=== PATIENT | female | born 1985 | race Caucasian/White ===

== ENCOUNTER 2020-02-27 10:38 | Emergency (ER) | payer OTHER, SELFPAY ==
[2020-02-27 11:52] VITALS: BP 138/85; PULSE 55; RESP 16; TEMP 37.1; O2SAT 100; BMI 30.9
--- NOTE | 2020-02-27 12:07 | CT_ITS ---
EXAMINATION: CT HEAD WITHOUT CONTRAST CLINICAL INFORMATION: Head trauma, rule out intracranial hemorrhage. COMPARISON: None TECHNIQUE: Contiguous axial imaging was performed from the skull base to vertex without intravenous administration of contrast. Coronal and sagittal reformatted images were obtained. This CT examination was performed using dose optimization techniques as appropriate, variously including the following: *Automated exposure control *Adjustment of mA and/or kV according to patient size (this includes techniques or standardized protocols for targeted exams where dose is matched to indication/reason for exam; i.e. extremities or head) *Use of iterative reconstruction technique DLP: 644 mGy-cm FINDINGS: There is no evidence of acute intracranial hemorrhage or territorial infarction. No abnormal mass effect or midline shift is seen. Wharton to white matter differentiation is well preserved. No extra-axial fluid collections are identified. The ventricles are normal in size. There is no abnormal attenuation within the brain parenchyma. The osseous structures and soft tissues are normal. The mastoid air cells are clear. There is complete opacification of the visualized superior aspect of the left maxillary sinus. The remainder the paranasal sinuses are clear. CT/CT head/brain wo con IMPRESSION: 1. No acute intracranial abnormality. 2. Complete opacification of the visualized superior aspect of the left maxillary sinus. The remainder of the visualized sinuses are clear.
--- NOTE | 2020-02-27 12:36 | ED.MEDCLEAR ---
HPI - Medical Clearance General Chief complaint: Medical Clearance Stated complaint: head injury Time Seen by Provider: 02/27/20 11:43 Source: patient Mode of arrival: ambulatory Limitations: no limitations History of Present Illness HPI Narrative: patient presents to the ED for head trauma. Patient states today at work she hit her frontal head on the door of a cabinet drawer at work. patient states this occurred around 07:30am and since then has had headache and dizziness. Patient states just before coming to the ED the headache and dizziness resolved. Patient came to ED to be evaluated. Patient denies any blood thinners, falling to the floor, neck pain, loss of consciousness, or history of any brain bleed. Related Information Previous Rx's Medication Instructions Recorded naproxen 500 mg PO BID PRN #20 tab 02/27/20 Allergies Allergy/AdvReac Type Severity Reaction Status Date / Time No Known Allergies Allergy Verified 02/27/20 11:55 Review of Systems Review of Systems: Yes all other systems are reviewed and are negative Constitutional: Constitutional: Reports as per HPI, Reports no additional constitutional complaints and Reports headache(s) (resolved) Eyes: Eyes: Reports as per HPI and Reports no additional eye complaints ENT: Reports system reviewed and no additional complaints, except as documented, Reports as per HPI, Reports dizziness (resolved) and Reports headache(s) (resolved) Cardiovascular: Cardiovascular: Reports as per HPI and Reports no additional cardiovascular complaints Respiratory: Respiratory: Reports as per HPI and Reports no additional respiratory complaints Gastrointestinal: Gastrointestinal: Reports as per HPI and Reports no additional gastrointestinal complaints Musculoskeletal: Musculoskeletal: Reports no additional musculoskeletal complaints and Reports as per HPI Neurologic: Reports system reviewed and no additional complaints, except as documented, Reports as per HPI, Reports dizziness (resolved) and Reports headache(s) (resolved) Psychiatric: Psychiatric: Reports no additional psychiatric complaints and Reports as per HPI PMF Social History Social History Alcohol intake: current Alcohol intake frequency: a few times a month Smoking Status: Never smoker Use of substances other than those prescribed or required for medical reasons: No Advance Directives: No Advance Directives Information Provided: Yes Physical Exam Vital Signs: Vital Signs: Last Vital Signs Temp 98.7 F 02/27/20 11:52 Pulse 55 02/27/20 11:52 Resp 16 02/27/20 14:00 BP 138/85 02/27/20 11:52 Pulse Ox 100 02/27/20 11:52 Body Mass Index 30.9 Const: General: cooperative, healthy appearing, comfortable and no acute distress Orientation/consciousness: patient oriented x3 HENMT: Head: Yes normal to inspection, Yes No palpable skull fracture present, Yes normocephalic, Yes atraumatic, No Rivas's sign, No contusion, No hematoma, No laceration, No palpable skull fracture, No raccoon eyes, No scalp lesion and No Temporal artery tenderness present Eyes: General: appearance normal, both eyes and all related structures Neck: Neck: Yes normal visual inspection, Yes full ROM, Yes no lymphadenopathy, Yes no meningeal signs, Yes trachea midline and No tender Chest: Chest palpation & inspection: normal inspection of the chest, normal palpation of entire chest wall and no localized rib tenderness Resp: Effort & Inspection: normal respiratory effort and not able to speak in complete sentences Cardio: Jugular venous distension: no JVD Heart sounds: S1 normal heart sound present and S2 normal heart sound present GI: Inspection: Yes normal to inspection and No abdominal wall ecchymosis Palpation (GI): Firmness to palpation present (GI), nontender, no guarding and not rigid : General: No CVA tenderness and Yes no CVA tenderness Back/Spine/Pelvis: Back: no CVA tenderness, No CVA tenderness and No back tenderness Skin: General skin exam: no rashes or lesions noted Neuro: General: patient oriented x3, gait normal, no meningeal signs and CN's II-XI intact bilaterally Cranial nerves: Yes CN's II-XII intact bilaterally Extrem: General: Yes normal to inspection and Yes full ROM Psych: Appearance: grossly normal, well kempt and not disheveled Course Course Course Narrative: Negative for any neuro deficit. Patient not in any pain. Patient would like to make sure there is no brain bleed although very unlikely. Patient will be sent for head CT. No indication for C-spine. Patient did not have any neck trauma and denies any neck pain. Reevaluation(s) Reevaluation #1: patient's head CT scan came back negative for any bleed or fracture. CT scan shows maxillary opacification, yet patient does not have any tenderness in that area. Patient made aware of opacification and given copy of imaging [facility]. Patient is safe for discharge MDM - Medical Clearance MDM Narrative Medical decision making narrative: head trauma. Discharge Plan Discharge Clinical Impression: Acute head trauma Patient Disposition: Home, Self-Care Instructions: Head Injury (ED) Additional Instructions: return to the ED immediately for any headache, dizziness, nausea, vomiting, weakness, slurred speech, loss of vision, paralysis, or any other concerning symptoms. please follow-up with the PCP. Prescriptions: New naproxen 500 mg tablet 500 mg PO BID PRN (Reason: pain) Qty: 20 RF: 0 Stand Alone Forms: Work/School Release Interventions: ED Discharge Assessment Last Done: 02/27/20 14:37 Discharge Date/Time: 02/27/20 14:38 Print Language: Togolese
[2020-02-27 14:00] VITALS: RESP 16
== END 2020-02-27 14:38 | disposition home or self-care (01) ==
PROVIDERS: Emergency Provider Emergency Medicine; PCP Obstetrics & Gynecology
DX: S09.8XXA Other specified injuries of head, initial encounter (principal); G44.309 Post-traumatic headache, unspecified, not intractable; R42 Dizziness and giddiness; Y29.XXXA Contact with blunt object, undetermined intent, initial encounter; Y93.9 Activity, unspecified; Y92.9 Unspecified place or not applicable; Y99.0 Civilian activity done for income or pay
CPT/HCPCS: 70450; 99284

== ENCOUNTER 2020-03-03 10:09 | Outpatient (REF) | payer OTHER, SELFPAY | END 2020-03-03 10:10 | disposition home or self-care (01) | LOC: HO.LAB 10:09 | PROVIDERS: Visit Provider Internal Medicine | DX: Z20.828 Contact with and (suspected) exposure to other viral communicable diseases (principal) | CPT/HCPCS: C9803; U0003 ==

== ENCOUNTER → 2021-02-20 12:09 | Outpatient (BNVA) | payer OTHER, SELFPAY | PROVIDERS: PCP Obstetrics & Gynecology; Visit Provider Internal Medicine | DX: Z77.21 Contact with and (suspected) exposure to potentially hazardous body fluids (principal) | CPT/HCPCS: 12001; 36415; 84450; 84460; 86706; 86803; 87389; 99203 ==

== ENCOUNTER → 2023-07-06 08:45 | Outpatient (BNVA) | payer OTHER, SELFPAY | PROVIDERS: PCP Obstetrics & Gynecology; Visit Provider Physician Assistant Medical | DX: S67.22XA Crushing injury of left hand, initial encounter (principal); S61.217A Laceration without foreign body of left little finger without damage to nail, initial encounter; W20.8XXA Other cause of strike by thrown, projected or falling object, initial encounter | CPT/HCPCS: 73130; 99204 ==

== ENCOUNTER → 2023-07-07 10:03 | Outpatient (BNVA) | payer OTHER, SELFPAY | PROVIDERS: PCP Obstetrics & Gynecology; Visit Provider Physician Assistant | DX: S67.22XA Crushing injury of left hand, initial encounter (principal); S61.217A Laceration without foreign body of left little finger without damage to nail, initial encounter; W20.8XXA Other cause of strike by thrown, projected or falling object, initial encounter | CPT/HCPCS: 99213 ==

== ENCOUNTER → 2023-07-11 13:04 | Outpatient (BNVA) | payer OTHER, SELFPAY | PROVIDERS: PCP Obstetrics & Gynecology; Visit Provider Physician Assistant Medical | DX: S67.22XA Crushing injury of left hand, initial encounter (principal); S63.657A Sprain of metacarpophalangeal joint of left little finger, initial encounter; W22.8XXA Striking against or struck by other objects, initial encounter | CPT/HCPCS: 99213 ==

== ENCOUNTER 2025-04-05 08:18 | Outpatient (REF) | payer OTHER, SELFPAY ==
[2025-04-05 09:15] LABS: MANUAL DIFF FLAG NO
[2025-04-05 09:31] LABS: Hematocrit 44.1 % (37.0-47.0); Hemoglobin 15.1 g/dl (12.0-16.0); Imm Gran Abs Auto 0.03 X10*3/uL (0.00-0.03); Imm Gran Pct Auto 0.4 % (0.0-0.4); Lymphocytes Absolute Auto 3.0 X10*3/uL (1.2-4.9); Mean Corpuscular HGB Conc 34.2 g/dl (31.0-35.0); Mean Corpuscular Hemoglobin 31.8 pg (27.0-33.0); Mean Corpuscular Volume 92.8 fL (80.0-98.0); NRBC Abs Auto 0.000 X10*3/uL (0.0-0.012); NRBC Pct Auto 0.0 /100WBC (0.0-0.2); Platelet Count 249 X10*3/uL (160-400); Red Blood Count 4.75 X10*6/uL (4.20-5.50); White Blood Count 8.4 X10*3/uL (4.8-10.8)
[2025-04-05 10:21] LABS: Alanine Aminotransferase 27 U/L (0-31); Albumin Level 4.7 g/dL (3.5-5.0); Alkaline Phosphatase 58 U/L (39-117); Anion Gap 14 (12-20); Aspartate Amino Transferase 33 U/L (5-31); Blood Urea Nitrogen 12 mg/dL (9-16); Calcium 9.4 mg/dL (8.4-10.2); Carbon Dioxide 24 mmol/L (22-29); Chloride 107 mmol/L (96-108); Cholesterol 200 mg/dL (<200); Estimated Glomerular Filt Rate > 60; HDL Cholesterol 70 mg/dL (>40); Potassium 4.6 mmol/L (3.3-5.1); Sodium 140 mmol/L (135-145); Total Protein 7.3 g/dL (6.5-8.0); Triglycerides 79 mg/dL (<150)
[2025-04-05 10:31] LABS: Free T4 (Free Thyroxine) 0.99 ng/dL (0.71-1.85)
[2025-04-05 11:02] LABS: Reflex LDLD? No
[2025-04-05 13:22] LABS: Magnesium 2.2 mg/dL (1.6-2.6)
== END 2025-04-05 08:19 | disposition home or self-care (01) ==
LOC: HO.LAB 08:18
PROVIDERS: PCP Student in an Organized Health Care Education/Training Program; Visit Provider Student in an Organized Health Care Education/Training Program
DX: Z00.00 Encounter for general adult medical examination without abnormal findings (principal); E06.3 Autoimmune thyroiditis; Z13.1 Encounter for screening for diabetes mellitus; Z13.220 Encounter for screening for lipoid disorders; Z13.31 Encounter for screening for depression; Z13.39 Encounter for screening examination for other mental health and behavioral disorders
CPT/HCPCS: 36415; 80053; 80061; 82306; 83036; 83735; 84439; 84443; 85025; 96127

== ENCOUNTER 2025-04-05 08:18 | Outpatient (AMB) | payer OTHER, SELFPAY ==
--- OUTSIDE RECORDS SUMMARY | 2025-04-05 08:20 | XMS_ITS | Encounter Summary ---
Author Organization [employer] Address [address] [facility] [address] [place] [address] Care Team Providers Care Hydraulic Jack Operator Name Role Phone Unavailable Primary Care Provider Unavailabl e Encounter Details Date Type Department Care Team (Latest Contact Info) Description 10/21/2021 Abstract [facility] CONVERSION[facility] Dental, Provider, DDS Social History Tobacco Use Types Packs/Day Years Used Date Smoking Tobacco: Never Assessed Comments Unknown Sex and Gender Information Value Date Recorded Sex Assigned at Female 10/26/2022 3:43 PM EDT Legal Sex Female 8:33 PM EDT Gender Identity Female 10/26/2022 3:43 PM EDT Sexual Orientation Straight 10/26/2022 3: 43 PM EDT documented as of this encounter Plan of Treatment Upcoming Encounters Date Type Department Care Team (Late st Contact Info) Description 04/09/2025 8:00 AM EST Office Visit [facility] ADULT DENTAL [address] [place] [address] SchillingMiriam Deshpande, DDS [address] [place] [address] Scheduled Orders Name Type Priority Associated Diagnoses Orde r Schedule 30 30 PREFABRICATED POST AND CORE IN ADDITION TO CROWN Dental Routine [address] arting 05/14/2024 30 30 CROWN - PORCELAIN/CERAMIC Dental Routine 1 Occurrences starting 05/14/2024 documented as of this encounter Visit Diagnoses Not on filedocumented in this encounter
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
--- OUTSIDE RECORDS SUMMARY | 2025-04-05 08:21 | XMS_ITS | Clinical Summary ---
Author Organization [employer] Address [address] [place] [address] [address] [place] [address] Care Team Providers Care Soda Jerker Name Role Phone Unavailable Primary Care Provider Unavailabl e Allergies No known active allergies Medications levothyroxine (Synthroid, Levoxyl) 37.5 mcg split tablet Active Active Problems Problem Noted Date Diagnosed Date Thyroid adenoma 08/06/2024 Encounters Date Type Department Care Team Description 01/30/2025 10:30 AM EDT Office Visit [facility] ADULT DENTAL [address] [place] [address] Miriam Albrecht, DDS Open fracture of tooth, initial encounter (Primary Dx) from Last 3 Months Social History Tobacco Use Types Packs/Day Years Used Date Smoking Tobacco: Every Day Cigarettes Smokeless Tobacco: Current Tobacco Cessation:Ready to Q uit: Not Asked; Counseling Given: Not Answered Alcohol Use Standard Drinks/Week Comments Not Asked 0 (1 standard drink = 0.6 oz pur e alcohol) Comments Unknown Sex and Gender Information Value Date Recorded Sex Assigned at Female 10/26/2022 3:43 PM EDT Legal Sex Female 8:33 PM EDT Gender Identity Female 10/26/2022 3:43 PM EDT Sexual Orientation Straight 10/26/2022 3: 43 PM EDT Last Filed Vital Signs Vital Sign Reading Time Taken Comments Blood Pressure 100/90 08/06/2024 3:27 PM EDT Pulse - - Temperature - - Respiratory Rate - - Oxygen Saturation - - Inhaled Oxygen Concentration - - Weight - - Height - - Body Mass Index - - Plan of Treatment Upcoming Encounters Date Type Department Care Team (Late st Contact Info) Description 04/09/2025 8:00 AM EST Office Visit [facility] ADULT DENTAL [address] [place] [address] TrenaMiriam, DDS [address] [place] [address] Health Maintenance Due Date Last Done Comments Depression Screening 1985 HIV Screening 1985 Lipid Panel 1985 SDOH Screening 1985 Disability Screening 1985 Alcohol/Substance Use Screening 1997 Family Planning (PISQ) 2000 Hepatitis C Screening 2003 Pneumococcal Vaccine: Pediatrics (0 to 5 Years) and At-Risk Patients (6 to 49) Years (1 of 2 - PCV) 2004 Pap Smear 2006 HPV Vaccines (3 - 3-dose series) 07/24/2008 05/01/2008, 01/18/2008 Dental X-Ray: Full Mouth 10/27/2014 10/27/2011 Cervical Cancer Screening 2015 HPV/Cotest 2015 Dental Oral Exam 04/24/2022 10/21/2021, 10/27/2011 Dental X-Ray: Bitewings 11/21/2022 11/21/19 22, 10/21/2021, 10/27/2011 Dental Prophylaxis 08/17/2023 02/15/2023, 10/21/2021 COVID-19 Vaccine ( - 2024- season) 2024 01/19/2021, 12/29/2020 Influenza Vaccine (#1) 2024 Tobacco Screening 07/09/2025 07/09/2024 DTaP/Tdap/Td Vaccines (8 - Td or Tdap) 04/04/2027 04/04/2017, 11/17/2009, 12/19/1997, Additional history exists Zoster Vaccines (1 of 2) 2035 RSV Patients and Patients Aged 60 years or older (1 - 1-dose 75+ series) 2060 IPV Vaccines Completed 06/23/1989, 06/09, 1985, Additional history exists Hepatitis B Vaccines Completed 07/17/2010, 03/18/2010, 11/17/2009 HIB Vaccines Aged Out No longer eligi ble based on patient's age to complete this topic Hepatitis A Vaccines Aged Out No long er eligible based on patient's age to complete this topic Meningococcal B Vaccine Aged Out No l onger eligible based on patient's age to complete this topic Meningococcal Vaccine Aged Out No levi pete eligible based on patient's age to complete this topic RSV under 20 months Aged Out No longe r eligible based on patient's age to complete this topic Rotavirus Vaccines Aged Out No longer eligible based on patient's age to complete this topic Procedures Procedure Name Priority Date/Time Associated Diagnosis Comments CASE PRESENTATION, DETAILED AND EXTENSIVE TREATMENT PLANNING Routine 01/30/2025 10:30 AM EDT 9 MIFL RESIN-BASED COMPOSITE - 4 OR MORE SURFACES (ANTERIOR) Routine 01/30/2025 10:30 AM EDT Full PROPHYLAXIS - ADULT Routine 023 1:00 PM EST BITEWING - SINGLE RADIOGRAPHIC IMAGE Routine 11/20/2021 12:00 AM EDT PERIODIC ORAL EVALUATION - ESTABLISHED PATIENT Routine 10/21/2021 12:00 AM EDT INTRAORAL - COMPLETE SERIES OF RADIOGRAPHIC IMAGES Routine 10/27/2011 12:00 AM EDT from Last 3 Months or Most Recently Relevant to Health Maintenance Insurance DENTAL - [facility] PARTIAL (MEDICAID) DENTAL - [facility]
--- OUTSIDE RECORDS SUMMARY | 2025-04-05 08:21 | XMS_ITS | Data Portability ---
Author Organization [facility], [address] Address [address] [place] [address] Assessment No assessment recorded. Plan of Treatment Reminders Order Date Submit Date Provider Last Modified By Organization Details Last Modified Time Details Appointments None recorded. Lab urinalysis, dipstick 2023 024 [email or web address] [facility], [address] [place], [address], 11:55:45 culture, urine 2023 024 [facility], [address] [place] [address], [place], [address], 08:15:39 Referral None recorded. Procedures None recorded. Surgeries None recorded. Imaging None recorded. Medication Orders nitrofurant oin monohydrate /macrocryst als 100 mg capsule 2023 024 [facility][id number], [address] [facility], [place], [address], 11:55:49 Patient TargetsNo targets recorded. Patient Instructions Encounter Date Encounter Id Patient Instructions Last Modified By Organization Details Last Modified Time 10/07/2023 [id number] painful urinatio n (dysuria): care instructions [email or web address] Not available 10/07/2023 11:55:42 Reason for Referral None Reported. Results Created Date Observation Date Name Description Value Unit Range Abnormal Flag Note LastModifiedBy Organization Detail LastModifiedTime 10/07/19 24 10/07/2023 urina lysis , dipst ick Unknown Analyte Normal = light yellow Not Available [facility] [address] [place] [address], [phone], 10/07/2023 10:58:07 10/07/19 24 10/07/2023 urina lysis , dipst ick Unknown Analyte Normal = clear Not Available [facility] [address] [place] [address], [phone], 10/07/2023 10:58:07 10/07/19 24 10/07/2023 urina lysis , dipst ick Unknown Analyte Normal = negati ve Not Available [facility] [address] [place] [address], [phone], 10/07/2023 10:58:07 10/07/19 24 10/07/2023 urina lysis , dipst ick Unknown Analyte Normal = Negati ve Not Available [facility] [address] [place] [address], [phone], 10/07/2023 10:58:07 10/07/1910/07/2023 urina lysis , dipst ick Unknown Analyte Normal = Negati ve Not Available [facility] [address] [place] [address], [address], 10/07/2023 10:58:07 10/07/19 24 10/07/2023 urina lysis , dipst ick Unknown Analyte Normal = 1.010, 1.015, 1.020 Not Available [facility] [address] [place] [address], [phone], 10/07/2023 10:58:07 10/07/19 24 10/07/2023 urina lysis , dipst ick Unknown Analyte Normal = Negati ve Not Available [facility] [address] [place] [address], [phone], 10/07/2023 10:58:07 10/07/19 24 10/07/2023 urina lysis , dipst ick Unknown Analyte Normal = 6.5, 7.0, 7.5, 8.0 Not Available [facility] [address] [place] [address], [address], 10/07/2023 10:58:07 10/07/19 24 10/07/2023 urina lysis , dipst ick Unknown Analyte Normal = Negati ve Not Available [facility], [address], 10/07/2023 10:58:07 10/07/19 24 10/07/2023 urina lysis , dipst ick Unknown Analyte Normal = 0.2, 1.0 Not Available [facility] ie [address], [address], 10/07/2023 10:58:07 10/07/19 24 10/07/2023 urina lysis , dipst ick Unknown Analyte Normal = Negati ve Not Available [facility] ie [address], [address], 10/07/2023 10:58:07 10/07/19 24 10/07/2023 urina lysis , dipst ick Unknown Analyte Normal = Negati ve Not Available [facility] [address] [place] [address], [phone], 10/07/2023 10:58:07 10/07/19 24 10/07/2023 urina lysis , dipst ick Unknown Analyte Yellow Not Available [address], [address], 10/07/2023 10:58:07 10/07/19 24 10/07/2023 urina lysis , dipst ick Unknown Analyte Clear Not Available [facility] [address] [place] [address], [phone], 10/07/2023 10:58:07 10/07/19 24 10/07/2023 urina lysis , dipst ick Unknown Analyte Negati ve Not Available [facility] [address] [place] [address], [phone], 10/07/2023 10:58:07 10/07/19 24 10/07/2023 urina lysis , dipst ick Unknown Analyte Negati ve Not Available [facility] [address] [place] [address], [address], 10/07/2023 10:58:07 10/07/19 24 10/07/2023 urina lysis , dipst ick Unknown Analyte Trace Not Available [address], [address], 10/07/2023 10:58:07 10/07/19 24 10/07/2023 urina lysis , dipst ick Unknown Analyte 1.020 Not Available [facility] [address] [place] [address], [address], 10/07/2023 10:58:07 10/07/19 24 10/07/2023 urina lysis , dipst ick Unknown Analyte Negati ve Not Available [facility] [address] [place] [address], [address], 10/07/2023 10:58:07 10/07/19 24 10/07/2023 urina lysis , dipst ick Unknown Analyte 5.5 Not Available [facility] [address] [place] [address], [phone], 10/07/2023 10:58:07 10/07/19 24 10/07/2023 urina lysis , dipst ick Unknown Analyte Negati ve Not Available [facility] [address] [place] [address], [phone], 10/07/2023 10:58:07 10/07/19 24 10/07/2023 urina lysis , dipst ick Unknown Analyte 0.2 E.U./d L Not Available [facility] [address] [place] [address], [phone], 10/07/2023 10:58:07 10/07/19 24 10/07/2023 urina lysis , dipst ick Unknown Analyte Negati ve Not Available [facility] [address] [place] [address], [phone], 10/07/2023 10:58:07 10/07/19 24 10/07/2023 urina lysis , dipst ick Unknown Analyte Trace Not Available [address], [address], 10/07/2023 10:58:07 Result Notes None recorded. Problems Name Problem SNOMED Code Status Onset Date Resolution Date Notes Provider Name and Address Organization Details Recorded Time Dysuria 91214128 Active 024 Marjan Morris NP [address] [place], [address] , [place] - [facility] 10/07/2023 11:47:23 Problem Notes None recorded. Medical Equipment None Reported. Allergies No known drug allergies Medications Name Sig Start Date Stop Date Status Note LastModified by Organization Details LastModified Time nitrofurantoin monohydrate/mac rocrystals 100 mg capsule Take 1 capsule every 12 hours by oral route for 5 days, for uti. 2023 active Not Available Not Available Not Avai lable levothyroxine active Not Available Not Available Not Available Vitals Date Recorded Body height Body mass index (BMI) Body weight Body temperature Oxygen saturation Heart rate Respiratory rate Systolic And Diastolic Provider Name and Address Organization Details Last Updated DateTime 162.56 cm 29.4 kg/m2 87192.3 g 98.4 [degF] 99 % 60 /min 18 /min 136/83 mm[Hg] Vy ShortyJeremyAdiel [place] - [facility] 10:54:25 Social History Question Answer Notes LastModified by Organizat ion Details LastModified Time Tobacco Smoking Status Current Every Day Smoker Vy ShortyJeremyAdiel contreras, [place] - [facility] 10/07/2023 10:57:05 Have You Had A Flu Shot This Season? No Information not available 10/07/2023 If No, Would You Like A Flu Shot Today? No Information not available 10/07/2023 Have You Had Direct Contact, Or Contact During Intimacy, With Monkeypox Rash, Scabs, Or Body Fluids From A Person With Monkeypox? No Information not available 10/07/2023 What Is Your Relationship Status? Single Information not available 10/07/2023 Have You Recently Traveled Abroad? No Information not available 10/07/2023 Are You Currently In School? No Information not available 10/07/2023 Sex: Unknown Functional Status Question Answer Note LastModified by Organizat ion Details LastModified Time Do you use any illicit or recreational drugs? No Information not available 10/07/2023 Do you or have you ever used any other forms of tobacco or nicotine? Yes Information not available 10/07/2023 What is your level of alcohol consumption? Occasional Information not available 10/07/2023 Are you currently employed? Yes Information not available 10/07/2023 Do you or have you ever used e-cigarettes or vape? Former user of electronic cigarettes Information not available 10/07/2023 Mental Status None recorded. Family History Nothing Reported. Medical History No medical history recorded. Gynecological History Statement/Question Response Date of LMP 09/17/2023 Is there any chance of ? No LMP N/A Obstetrics History GPAL:G 0 P 0 0 0 0 Past Encounters Encounter ID Performer Location Encounter Start Date Encounter Closed Date Diagnosis/Indication Diagnosis SNOMED-CT Code Diagnosis ICD10 Code Diagnosis IMO Codes Diagnosis [id number] [address] [facility] [facility] [address] [address] 08/06/2021 14:37:52 08/06/2021 15:57:32 [id number] Marjan Morris, [employer] OPERATOR [address] [place] [address] 10/07/2023 10:25:21 10/07/2023 11:57:32 Dysuria 16119505 R30.0 You are going to be treated for a Urinary Tract Infection. The following are recommenda tions to help with your symptoms and recovery:1 . Drink Plenty of fluids - Stay hydrated2. Finish full antibiotic course3. I recommend starting a Probiotic - I recommend Florastor4 . If you take Azo - this will help the burning and urgency feeling - just be aware it will turn your urine bright yellow. I would not hesitate to be seen again if you develop:1. Severe Back Pain2. Abdominal Pain3. Nausea and Vomiting4. Vaginal Discharge or Bleeding5. Fever > 101.0 You symptoms should improve within 72 hours for a typically UTI. If a urine culture was sent out to the lab for you we should get the results back within 4 days. This will be able to prove that your symptoms are caused by a UTI and it will also verify that the correct antibiotic was prescribed . Thank you for using [facility] - please don't hesistate to call our office if you have any questions or concerns. Health Concerns Section Related Observation LastModified by Organization Detai ls LastModified Time None Recorded Concern Status LastModified by Organization Details LastModified Time None Recorded Advance Directives Directive None Recorded Payers Insurance Date Sequence Insurance Name Policy Number Policy Christopher Covered Member ID Christopher Member ID Guarantor Name 10/07/2023 1 [facility] [id number] 1 Tanya Navarro [id number] Tanya Navarro Notes Date Note Type Note Provider Name and Address Organization Details Recorded Time 4 text/htm l UTI female UCReported by PatientUrinary problemsFor uti symptoms, patient reportsurgencyandburning sensation during urinationbut reportsno blood in the urine,no vaginal discharge,no pain in the flank,no fever/chills,no incontinence, andno recurrent uti. For source of patient information, patient reportsinformation obtained from patientandpatient arrived at urgent care ambulatory. For severity, patient reportsmoderate. For duration, patient reportsstarted ___and2 weeks. For modifying factors, patient reportsnothing gives relief. pt possibly has a UTI for about 1 1/2 week,frequent urinating, pain on both sides of her ovaries , 1 week ago pt was very constipated and very bloated. pt did a home UTI test 2 nights ago and it came back positive Marjan Morris, EMILY [address] [place], [address], [place] - [facility] 10/08/2023 19:19:59 OBGyn Episode No OBEpisode recorded.
--- NOTE | 2025-04-05 08:23 | MHC.PC.OV ---
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 Data Sme Required: No Accompanied by: Self / Same As Patient Allergies No Known Allergies Allergy (Verified 04/05/25 08:26) Medication List - Last Reconciled 04/05/25 by Haylie Houston MD levothyroxine 75 mcg PO DAILY nicotine 1 patch transdermal DAILY Tobacco use date assessed: 04/05/25 Dental Screening Dental Screen Date: 04/05/25 Did you have a dental visit in the last 12 months?: Yes Did you have a dental problem in the last 6 months where you did not have access to dental care?: No Was dental information given to patient?: Patient has dentist HPI HPI Comments History of Present Illness Details The patient is a 39-year-old female who presents to [facility] care, as it has been a couple of years since she has seen a physician. 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 She also reports a history of prediabetes and high blood pressure, which she manages with diet, including fasting, and exercise. Her surgical history includes a . About four years ago, in 2020, she had a marker placed in her breast due to dense tissue and concern for breast cancer but has not had follow-up since. Her last Pap smear was approximately three to four years ago. Family history is significant for Graves' disease, diabetes, high cholesterol, and hypertension. There is also a family history of breast cancer on her mother's side, affecting her maternal aunt and grandmother. Socially, the patient smokes half a pack of cigarettes daily and has done so since age 13. She drinks alcohol daily, consuming about three seltzers, and also uses marijuana daily since age 13. She reports exercising on a treadmill for 20 minutes, five days a week, and has had an intentional 80-pound weight loss. [facility] Medical History (Updated 04/05/25 @ 09:40 by Haylie Houston MD) Asthma Hypertension Pre-diabetes Nilam's thyroiditis Family History (Updated 04/05/25 @ 08:33 by Aria Potter MA) Mother Breast cancer Social History (Updated 04/05/25 @ 08:29 by Aria Potter MA) Alcohol intake: current Alcohol intake frequency: a few times a month Patient Tobacco Use Status: Current everyday Tobacco user e-Cigarette/Vaping Use: Currently Using Substance Use Type: Marijuana Current occupational status: employed Cognitive needs: No Hearing needs: No Vision needs: Yes Questionnaire PHQ-9 Over the last 2 weeks, how often have you been bothered by any of the following problems? 1. Little interest or pleasure in doing things: not at all 2. Feeling down, depressed, or hopeless: not at all 3. Trouble falling or staying asleep, or sleeping too much: not at all 4. Feeling tired or having little energy: nearly every day 5. Poor appetite or overeating: not at all 6. Feeling bad about yourself - or that you are a failure or have let yourself or your family down: not at all 7. Trouble concentrating on things, such as reading the newspaper or watching television: not at all 8. Moving or speaking so slowly that other people could have noticed. Or the opposite - being so fidgety or restless that you have been moving around a lot more than usual: not at all 9. Thoughts that you would be better off or of hurting yourself in some way: not at all Total score: 3 Source: Developed by Drs. Guillermo Ruiz, Pinky Lees, Santos Reed and colleagues, with an educational good from [employer]. Thrive Questionnaire Date Thrive assessed: 04/05/25 I am a: Patient What is your living situation today?: I have a steady place to live Within the past 12 months, did the food you bought not last and you didn't have the money to get more?: Never true Within the past 12 months, did you worry whether your food would run out before you got money to buy more?: Sometimes True Do you have trouble paying for medicines?: No Do you have trouble getting transportation to medical appointments?: No Do you have trouble paying your heating and electricity bill?: Yes Do you have trouble taking care of your child, family member or friend?: No Do you have trouble with day-to-day activities such as bathing, preparing meals, shopping, managing finances, etc.?: No Are you currently unemployed and looking for a job?: No Are you interested in more education?: No Please select the resources that you would like help with: Housing/Senior Living Currently or been in a relationship where the following occur: No concerns reported THRIVE Score: 2 AUDIT C Alcohol Use Questionnaire (AUDIT-C) 1. How often do you have a drink containing alcohol?: 4 or more times a week 2. How many drinks containing alcohol do you have on a typical day when you are drinking?: 3 or 4 3. How often do you have six or more drinks on one occasion?: Weekly Total Score: 8 SILVESTRE-7 AMB Questionnaire SILVESTRE-7 Date SILVESTRE - 7 assessed: 04/05/25 Feeling nervous, anxious, or on edge: 0 = Not at all Not being able to stop or control worryin = Not at all Worrying too much about different things: 0 = Not at all Trouble relaxin = Not at all Being so restless that it is hard to sit still: 0 = Not at all Becoming easily annoyed or irritable: 1 = Several days Feeling afraid as if something awful might happen: 0 = Not at all Total SILVESTRE-7 score (0-4 normal; 5-9 mild; 10-14 moderate; 15-21 severe): 1 Source: Developed by Drs. Guillermo Ruiz, Pinky Lees, Santos Reed and colleagues, with an educational good from [employer]. Physical exam (Primary Care) Vital Signs: Last Vital Signs Pulse 54 04/05/25 08:24 Resp 18 04/05/25 08:24 BP 140/86 H 04/05/25 08:24 Pulse Ox 100 04/05/25 08:24 Oxygen Delivery Method Room Air 04/05/25 08:24 General: Well-appearing, alert, oriented ?3, in no acute distress. Cardiovascular: RRR, S1-S2 appreciated, no murmurs, rubs or gallops. Respiratory: Lungs clear to auscultation bilaterally, no wheezes, rales or rhonchi. Abdomen: Soft, nontender, nondistended. Normoactive bowel sounds. No lower extremity edema BMI result Body Mass Index 29.6 Tobacco/Smoking Status: Tobacco use Status Tobacco use date assessed 04/05/25 04/05/25 08:36 Patient Tobacco Use Status Current everyday Tobacco 04/05/25 08:36 e-Cigarette/Vaping Use Currently Using 04/05/25 08:36 PHQ-9: PHQ-9 Score PHQ-9: Total score 3 04/05/25 08:46 Thrive Assessment: Date of Thrive Assessment Date Thrive assessed 04/05/25 04/05/25 08:36 Currently or been in a relationship where the following occur: No concerns reported Coding Level of Care Code New Pt Level 4 (00404) Diagnoses Establishing care with new doctor, encounter for Z76.89 Nilam's thyroiditis E06.3 Hypertension, unspecified type I10 Hypertension type: unspecified Tobacco dependence F17.200 Cervical cancer screening Z12.4 Encounter for screening mammogram for malignant neoplasm of breast Z12.31 Breast cancer screening modality: mammogram Assessment & Plan Assessment & Plan (1) Establishing care with new doctor, encounter for: Code(s): Z76.89 - Persons encountering health services in other specified circumstances Plan: Patient is a 39-year-old female with reportedly history of Nilam's disease, prediabetes presenting to establish care. (2) Nilam's thyroiditis: Code(s): E06.3 - Autoimmune thyroiditis Category: Medical Plan: Patient on levothyroxine 75 mcg daily. Obtain TSH and T4 (3) Hypertension: Code(s): I10 - Essential (primary) hypertension Category: Medical Qualifiers: Hypertension type: unspecified Qualified Code(s): I10 - Essential (primary) hypertension Plan: Patient reports history of hypertension that was managed with diet and exercise. Today's blood pressure in clinic is 140/86. Patient is advised to monitor blood pressure at home twice daily and keep a log Follow up in 2 weeks for nurse visit for blood pressure check and reviewing of her readings Risks of uncontrolled hypertension were discussed with patient. Lifestyle modification including low-salt diet, smoking cessation and exercise were discussed Obtain blood work (4) Tobacco dependence: Code(s): F17.200 - Nicotine dependence, unspecified, uncomplicated Category: Medical Plan: Patient has a longstanding history of smoking, smokes about half a pack a day since she was 13 years old. Smoking cessation and benefits were discussed. She expressed a goal to quit with plan to start in 2 weeks. Start nicotine 21 mg patches to apply 1 daily for 6 weeks and then will taper down Follow up in 2 months (5) Cervical cancer screening: Code(s): Z12.4 - Encounter for screening for malignant neoplasm of cervix Plan: Referred to OBGYN for Pap smear (6) Breast cancer screening: Code(s): Z12.39 - Encounter for other screening for malignant neoplasm of breast Qualifiers: Breast cancer screening modality: mammogram Qualified Code(s): Z12.31 - Encounter for screening mammogram for malignant neoplasm of breast Plan: Patient reports a history of breast marker placement 2021 with no subsequent follow up. Mammogram is ordered for breast cancer screening Orders: Orders Complete Blood Count Auto Diff Today Z00.00 - Encounter for general adult medical examination without abnormal findings TSH reflex Free T4 Today E06.3 - Autoimmune thyroiditis Hemoglobin A1c Today Z13.1 - Encounter for screening for diabetes mellitus Free T4 (Free Thyroxine) Today E06.3 - Autoimmune thyroiditis MM tomosynthesis screening BI Today Z12.31 - Encounter for screening mammogram for malignant neoplasm of breast Vitamin D 25-OH (D2 and D3) Today E55.9 - Vitamin D deficiency, unspecified Comprehensive Met. Panel Today Z00.00 - Encounter for general adult medical examination without abnormal findings Lipid Panel with Reflex Today Z13.220 - Encounter for screening for lipoid disorders Magnesium Today F10.20 - Alcohol dependence, uncomplicated Referrals PEDIATRIC ASSISTANT Referral Z12.4 - Encounter for screening for malignant neoplasm of cervix Medications: New nicotine 1 patch transdermal DAILY 14 ea 2RF smoking cessation blood pressure monitor As directed 1 ea 0RF
[2025-04-05 08:24] VITALS: BP 140/86; PULSE 54; RESP 18; O2SAT 100; BMI 29.6
== END 2025-04-05 08:59 | disposition home or self-care (01) ==
LOC: HO.HMCH 08:19
PROVIDERS: PCP Student in an Organized Health Care Education/Training Program; Visit Provider Student in an Organized Health Care Education/Training Program
DX: Z76.89 Persons encountering health services in other specified circumstances (principal); E06.3 Autoimmune thyroiditis; I10 Essential (primary) hypertension; F17.200 Nicotine dependence, unspecified, uncomplicated; Z12.4 Encounter for screening for malignant neoplasm of cervix; Z12.31 Encounter for screening mammogram for malignant neoplasm of breast